=== PATIENT | female | born 1945 | race Caucasian/White ===

== ENCOUNTER 2017-02-13 00:56 | Observation (INO) | payer OTHER, MEDICARE ==
[~2017-02-13] VITALS: Ht 162.6 cm; Wt 102.5 kg
[2017-02-13] MEDS ORDERED: NITROGLYCERIN OINT 2% 1GM PACKET EXT ONE (01:15)
[2017-02-13 01:35] LABS: BASO % 0.1 %; BASO ABS # 0.01 K/uL (0-0.2); COMPLETE YES; EOS % 0.2 %; HEMATOCRIT 39.6 % (37-47); IG% 2.5 %; LYMPH % 9.3 %; LYMPH ABS # 1.23 K/uL (1.2-3.4); MEAN CELL VOLUME 91.2 fL (80-100); MEAN CORPUSCULAR HEMOGLOBIN 31.8 pg (25-34); MEAN CORPUSCULAR HGB CONC 34.8 g/dl (32-36); MEAN PLATELET VOLUME 9.1 fL (7.4-10.4); NEUT % 77.9 %; PLATELET COUNT 289 K/uL (130-400); RED BLOOD COUNT 4.34 M/uL (4.2-5.4); WHITE BLOOD COUNT 13.16 K/uL (4.8-10.8)
[2017-02-13] MEDS ORDERED: RANI300T PO (01:36)
[2017-02-13] MEDS ORDERED: MULT-506 PO (01:36)
[2017-02-13] MEDS ORDERED: OXYB10TA PO (01:36)
[2017-02-13] MEDS ORDERED: NORT75CA2 PO (01:36)
[2017-02-13] MEDS ORDERED: LORA-741 PO (01:36)
[2017-02-13] MEDS ORDERED: VORT1TAB3 PO (01:36)
[2017-02-13] MEDS ORDERED: DEXL60CA4 PO (01:36)
[2017-02-13] MEDS ORDERED: DOCU100C PO (01:36)
[2017-02-13] MEDS ORDERED: LSN20 PO (01:36)
[2017-02-13] MEDS ORDERED: VEGETABLE LAXATIVE PO (01:36)
[2017-02-13] MEDS ORDERED: PREG1CAP28 PO (01:36)
[2017-02-13] MEDS ORDERED: MORP15TA PO (01:36)
[2017-02-13] MEDS ORDERED: CHOL2000 PO (01:36)
--- NOTE | 2017-02-13 01:39 | EMERGENCY ROOM VISIT NOTE ---
History Report prepared by Berry: Adam Smith Under the Supervision of: Dr. Lynda Todd M.D. First contact with patient: 01:05 Stated Complaint: CHEST PAIN - HEART ALERT History of Present Illness The patient is a 71 year old female who presents to the Emergency Room with complaints of sudden chest pain occurring around 2300. She currently rates her discomfort as a 1-2/10 in severity. The patient states that she was asleep, and she woke up with pain that felt like bad indigestion. She states that she took an hillary seltzer, and the pain kept getting worse. She states that she was short of breath at the time, however she feels better now. The patient states that she is not on oxygen at home, though she uses a CPAP. She states that she has never had a heart attack before, and she denies any other medical problems. The patient states that she does not smoke. She states that she has not taken aspirin today, and she was given Nitro en route, and this helped the pain. She states that she felt fine earlier in the day before this pain started. The patient additionally states that she was nauseous, and she had some back pain, though she was not diaphoretic. She has a history of heart disease on both sides of her family. Source of History: patient Onset: 2300 Position: chest Symptom Intensity: 1-2/10 Quality: other (indigestion) Timing: other (sudden) Associated Symptoms: + SOB, + nausea, + back pain, No diaphoresis Review of Systems See HPI for pertinent positives & negatives. A total of 10 systems reviewed and were otherwise negative. Past Medical & Surgical Surgical Problems: (1) History of intestinal surgery Family History Heart disease Social History Marital Status: Housing Status: lives with family Current/Historical Medications Scheduled Cholecalciferol (D3), 1,000 UNITS PO DAILY Dexlansoprazole (Dexilant), 60 MG PO QAM Lisinopril (Lisinopril), 20 MG PO QAM Lorazepam (Ativan), 1 MG PO QPM Multivitamin (Multivitamin), 1 TAB PO DAILY Nortriptyline Hcl (Pamelor), 150 MG PO QPM Oxybutynin Chloride Er (Ditropan Xl), 10 MG PO QPM Pregabalin (Lyrica), 75 MG PO BID Ranitidine Hcl (Zantac), 300 MG PO QPM Vortioxetine HBr (Trintellix), 20 MG PO QAM Scheduled PRN Docusate Sodium (Stool Softener), 100 MG PO DAILY PRN for Constipation Morphine Sulfate Ir (Morphine Sulfate Ir), 15 MG PO DIRECTED PRN for Pain [Vegetable Laxative], 1 DOSE PO DIRECTED PRN for Constipation Allergies Coded Allergies: Iodinated Diagnostic Agents (Verified Allergy, Unknown, UNKNOWN, 02/13/17) Propoxyphene (Verified Allergy, Unknown, UNKNOWN, 02/13/17) Physical Exam Vital Signs Date Time Temp Pulse Resp B/P (MAP) Pulse Ox O2 Delivery O2 Flow Rate FiO2 02/13/17 03:11 78 20 99 02/13/17 03:01 140/92 02/13/17 02:56 73 15 99 02/13/17 02:26 78 14 99 02/13/17 02:11 79 22 99 02/13/17 02:01 167/83 02/13/17 01:58 149/82 02/13/17 01:56 78 17 99 02/13/17 01:41 81 100 02/13/17 01:31 151/93 02/13/17 01:28 81 24 160/91 99 Room Air 2.0 02/13/17 01:26 82 160/91 99 02/13/17 01:12 99 Room Air 02/13/17 01:11 83 99 02/13/17 01:11 82 02/13/17 01:10 151/74 02/13/17 01:07 36.9 81 24 157/74 99 Nasal Cannula 2.0 02/13/17 01:07 193/104 Physical Exam Vital signs reviewed. General: Obese, chronically ill appearing female, in no significant distress. Nasal Cannula oxygen in place. HEENT: No scleral icterus, PERRLA, neck supple. Atraumatic. Cardiovascular: Regular rate and rhythm, no extra sounds. Pulmonary: Clear to auscultation bilaterally, normal work of breathing. Abdomen: Soft, nontender, nondistended, positive bowel sounds. Musculoskeletal: Atraumatic, no peripheral edema. Neurologic: Patient awake alert and oriented x 3, full strength in all 4 extremities. Cranial nerves 2 through 12 grossly intact. Skin: Warm, dry, no rash Medical Decision & Procedures ER Provider Diagnostic Interpretation: X-ray results as stated below per interpretation by me: Chest X-Ray: Bilateral shoulder replacements. Cardiomegaly. Poor visualization of the left costophrenic angle. No significant failure. No infiltrate. Laboratory Results 02/13/17 01:23 Red Blood Count 4.34, Mean Corpuscular Volume 91.2, Mean Corpuscular Hemoglobin 31.8, Mean Corpuscular Hemoglobin Concent 34.8, Mean Platelet Volume 9.1, Neutrophils (%) (Auto) 77.9, Lymphocytes (%) (Auto) 9.3, Monocytes (%) (Auto) 10.0, Eosinophils (%) (Auto) 0.2, Basophils (%) (Auto) 0.1, Neutrophils # (Auto ) 10.25, Lymphocytes # (Auto) 1.23, Monocytes # (Auto) 1.32, Eosinophils # (Auto ) 0.02, Basophils # (Auto) 0.01 02/13/17 00:29 Test 02/13/17 00:29 02/13/17 01:23 02/13/17 02:55 Anion Gap 8.0 mmol/L (3-11) Est Creatinine Clear Calc Drug Dose 54.2 ml/min Estimated GFR () 53.4 Estimated GFR (Non- 46.1 BUN/Creatinine Ratio 27.2 (10-20) Calcium Level 8.9 mg/dl (8.5-10.1) Magnesium Level 2.1 mg/dl (1.8-2.4) Total Bilirubin 0.5 mg/dl (0.2-1) Direct Bilirubin 0.2 mg/dl (0-0.2) Aspartate Amino Transf (AST/SGOT) 166 U/L (15-37) Alanine Aminotransferase (ALT/SGPT) 99 U/L (12-78) Alkaline Phosphatase 59 U/L (45-117) Total Creatine Kinase 39 U/L (26-192) Creatine Kinase MB 0.7 ng/ml (0.5-3.6) Creatine Kinase MB Ratio 1.8 (0-3.0) Total Protein 7.3 gm/dl (6.4-8.2) Albumin 3.7 gm/dl (3.4-5.0) White Blood Count 13.16 K/uL (4.8-10.8) Red Blood Count 4.34 M/uL (4.2-5.4) Hemoglobin 13.8 g/dL (12.0-16.0) Hematocrit 39.6 % (37-47) Mean Corpuscular Volume 91.2 fL (80-100) Mean Corpuscular Hemoglobin 31.8 pg (25-34) Mean Corpuscular Hemoglobin Concent 34.8 g/dl (32-36) Platelet Count 289 K/uL (130-400) Mean Platelet Volume 9.1 fL (7.4-10.4) Neutrophils (%) (Auto) 77.9 % Lymphocytes (%) (Auto) 9.3 % Monocytes (%) (Auto) 10.0 % Eosinophils (%) (Auto) 0.2 % Basophils (%) (Auto) 0.1 % Neutrophils # (Auto) 10.25 K/uL (1.4-6.5) Lymphocytes # (Auto) 1.23 K/uL (1.2-3.4) Monocytes # (Auto) 1.32 K/uL (0.11-0.59) Eosinophils # (Auto) 0.02 K/uL (0-0.5) Basophils # (Auto) 0.01 K/uL (0-0.2) RDW Standard Deviation 46.0 fL (36.4-46.3) RDW Coefficient of Variation 13.7 % (11.5-14.5) Immature Granulocyte % (Auto) 2.5 % Immature Granulocyte # (Auto) 0.33 K/uL (0.00-0.02) Bedside Troponin I < 0.030 ng/ml (0-0.045) Urine Color YELLOW Urine Appearance CLEAR (CLEAR) Urine pH 5.0 (4.5-7.5) Urine Specific [place] 1.026 (1.000-1.030) Urine Protein NEG (NEG) Urine Glucose (UA) NEG (NEG) Urine Ketones NEG (NEG) Urine Occult Blood NEG (NEG) Urine Nitrite NEG (NEG) Urine Bilirubin NEG (NEG) Urine Urobilinogen NEG (NEG) Urine Leukocyte Esterase NEG (NEG) Laboratory results per my review. Medications Administered Medications (Trade) Dose Ordered Sig/Lana Route Start Time Stop Time Status Last Admin Dose Admin Nitroglycerin (Nitroglycerin 2% Oint) 1 inch NOW ONCE EXT 02/13/17 01:15 02/13/17 01:16 DC 02/13/17 01:33 1 INCH ECG Indication: chest pain Rate (beats per minute): 80 Rhythm: normal sinus Findings: RBBB, no acute ischemic change, other (Likely previous inferior infarct, T wave anbormalities in the anterior leads) Comparison ECG Date: 07/02/2000 Change: Right bundle branch block is new ED Course 0105: Past medical records reviewed. The patient was evaluated in room A1. A complete history and physical examination was performed. 0115: Nitroglycerine 2% Oint 1 inch EXT 0228: I reevaluated the patient, and she states that she does not have a gall bladder. 0245: I reviewed the patient's case with Dr. Gagnon. He will evaluate the patient for further management. Medical Decision Differential Diagnosis: Acute coronary syndrome, pulmonary embolus, aortic dissection, musculoskeletal pain, pneumonia, pleural effusion, pneumothorax This patient was evaluated and appeared to be in no significant distress. IV access was obtained and lab work was drawn. Pt was placed on the residential monitor. She was given aspirin prior to arrival. EKG reveals a right bundle branch block with repolarization abnormality. Old EKG is from the year 1999 with no right bundle-branch block present. Patient was given 1 inch of Nitropaste she was complaining of 1/10 pain. Chest x-ray is largely clear. Cardiac enzymes are normal. Patient will be evaluated by the hospitalist service for admission and further management. Medication Reconcilliation Current Medication List: was personally reviewed by me Blood Pressure Screening Patient's blood pressure: Elevated blood pressure Blood pressure disposition: Elevated BP felt to be situational Referred to the hospitalist. Consults Time Called: [phone] Consulting Physician: Dr. Gagnon Returned Call: [phone] I reviewed the patient's case with Dr. Gagnon. He will evaluate the patient for further management. Impression Primary Impression: Substernal chest pain Scribe Attestation The scribe's documentation has been prepared under my direction and personally reviewed by me in its entirety. I confirm that the note above accurately reflects all work, treatment, procedures, and medical decision making performed by me. Departure Information Dispostion Being Evaluated By Hospitalist Referrals Merlene Russell M.D. (PCP)
[2017-02-13] MEDS ORDERED: CHOL1CAP27 PO (01:42)
[2017-02-13 02:08] LABS: BUN/CREATININE RATIO 27.2 (10-20); CALCIUM 8.9 mg/dl (8.5-10.1); CREATININE 1.2 mg/dl (0.60-1.20)
[2017-02-13 02:10] LABS: POTASSIUM 4.1 mmol/L (3.5-5.1)
[2017-02-13 02:18] LABS: CKMB/CK RATIO 1.8 (0-3.0); MAGNESIUM 2.1 mg/dl (1.8-2.4)
[2017-02-13 03:05] LABS: URINE APPEARANCE CLEAR (CLEAR); URINE BILIRUBIN NEG (NEG); URINE COLOR YELLOW; URINE NITRITE NEG (NEG); URINE SPECIFIC GRAVITY 1.026 (1.000-1.030); UROBILINOGEN NEG (NEG); ZZUR CULT IF INDIC CLEAN CATCH NO
[2017-02-13 03:13] LABS: MANUAL MICROSCOPIC REQUIRED? NO; REVIEW REQ? NO
[2017-02-13] MEDS ORDERED: ONDANSETRON INJ 2 MG/ML 2 ML VIAL IV PRN (03:30)
[2017-02-13] MEDS ORDERED: NITROGLYCERIN 0.4 MG SL PER TAB CHARGE SL PRN (03:30)
[2017-02-13] MEDS ORDERED: DOCUSATE SODIUM 100 MG CAP PO PRN (03:30)
[2017-02-13] MEDS ORDERED: MoRPHine SULFATE IR 15 MG TAB (IMMEDIATE RELEASE) PO PRN (03:30)
[2017-02-13] MEDS ORDERED: PSYLLIUM 58.6% PWD PACK S\\F PO PRN (03:30)
[2017-02-13] MEDS ORDERED: ACETAMINOPHEN 325 MG TAB PO PRN (03:30)
[2017-02-13 04:00] VITALS: BP 149/69; PULSE 102; TEMP 36.5; O2SAT 98; Ht 162.6 cm; Wt 102.5 kg
[2017-02-13] MEDS ORDERED: NSS + 20MEQ KCL 1000ML 1,000 ML IV SCH (04:30)
[2017-02-13] MEDS ORDERED: IV FLUIDS COMPLETED PRN (04:45)
--- NOTE | 2017-02-13 06:00 | HISTORY & PHYSICAL EXAMINATION ---
DATE OF ADMISSION: 02/13/2017 PRIMARY CARE PHYSICIANS: Dr. Wilson and also as noted in the chart Dr. Seymour CHIEF COMPLAINT: Substernal chest pain since around 10 p.m. last night. HISTORY OF PRESENT ILLNESS: She is an obese, 71-year-old female, with a significant past medical history including myalgia myositis, esophageal reflux, depressed mood, hypertension and abnormality of gait. Apparently, she went to bed around 10 p.m. and woke up with substernal chest pain following that. Initially, she took an Zora-Burns to relieve the pain, but no improvement. Then she took 2 Tums without any improvement. The pain got worse, associated with shortness of breath and some nausea. At that point, her sister called 911 and she was brought to the Emergency Room. She got nitroglycerin x2 and with that the pain was relieved to some extent. In the Emergency Room, she was hemodynamically stable. Her blood pressure went down a little bit following the nitroglycerin, but that came out normal. Subsequently, her blood count tests came out unremarkable including troponin, but her EKG did show probable right bundle branch block with associated ST-T wave changes, but nothing acute. Given the severity of the chest pain she was admitted to telemetry unit for continuation of care. PAST MEDICAL HISTORY: Significant for myalgia, myositis, esophageal reflux, anxiety/depression, hypertension, chronic pain, abnormality of gait and obesity. PAST SURGICAL HISTORY: Significant for multiple surgeries in the abdomen, in the intestine and also herniorrhaphy. She had right and left shoulder replacements in the past, gallbladder surgery, tonsillectomy as a child, hiatal hernia and also total hysterectomy. Also she has had intraoperative repair for urinary bladder. ALLERGIES: SHE IS ALLERGIC TO IODINATED CONTRAST DYE AND ALSO PROPOXYPHENE. MEDICATIONS: As an outpatient she has been on D3 1000 units daily, Dexilant 60 mg in the morning, docusate sodium 100 mg b.i.d., lisinopril 20 mg daily, lorazepam 0.5 mg at night, morphine sulfate IR 15 mg as directed for pain, multivitamin tablet 1 tablet daily, Pamelor 75 mg tablet 2 tablets at night, oxybutynin ER 10 mg daily, Lyrica 75 mg p.o. b.i.d., Zantac 300 mg at night, Trintellix 20 mg in the morning and laxatives as directed. REVIEW OF SYSTEMS: Nothing unremarkable. FAMILY HISTORY: Maternal grandmother and mother had heart disorder. Father had asthma. SOCIAL HISTORY: She is a . She has 4 children. She is a nonsmoker now, used to smoke before. She does not drink any alcohol and she lives with her boyfriend. PHYSICAL EXAMINATION: GENERAL: On examination in the Emergency Room, she was not having any acute distress. VITAL SIGNS: Temperature 36.9, pulse was 81, blood pressure 160/91 and saturation 99% on 2 liters. HEENT: Unremarkable. NECK: Supple. No JVD, no bruit. CHEST: Decreased breath sounds without any wheezing and/or crackles. HEART: S1, S2 regular. ABDOMEN: Soft, benign, mildly tender all over, scars from previous surgery. Bowel sounds present.No organomegaly. EXTREMITIES: Trace edema bilaterally. MUSCULOSKELETAL: Did not show any acute arthritis. CENTRAL NERVOUS SYSTEM: She was alert, awake and oriented x3. LABORATORY DATA: Noted today; white count was 13.16, H&H 13.8/39.6 and platelet was 289. Sodium 137, potassium 4.1, chloride 103, carbon dioxide 26, BUN 33, creatinine 1.20 and random glucose 156. AST slightly high at 166, ALT 99, alkaline phosphatase normal. Troponin was less than 0.030. UA examination; unremarkable. Chest x-ray; no acute findings. EKG; SR,a rate of 84 per minute, normal axis and RBBB with associated ST-T wave changes. She has history of prior right bundle branch block. IMPRESSION AND PLAN: 1. Chest pain, to rule out myocardial infarction. She will be admitted to telemetry unit for observation. Serial cardiac enzymes; if she rules out, most likely she will need dobutamine stress echocardiogram for further evaluation before she is discharged. 2. Hypertension; blood pressure on upper side of normal, continue current medications. 3. Chronic pain, continue with her pain regimen. 4. Anxiety/depression, continue with current medications. 5. Gastroesophageal reflux, continue with ranitidine. 6. Deep venous thrombosis prophylaxis with subcutaneous heparin. 7. Code status, discussed with the patient, she will be a full code. In my clinical judgment, the beneficiary meets criteria as per CMS for 2 midnights' stay in the hospital. MEI
--- NOTE | 2017-02-13 06:51 | DIAGNOSTIC IMAGING REPORT ---
CHEST ONE VIEW PORTABLE CLINICAL HISTORY: Atypical chest pain COMPARISON STUDY: No previous studies for comparison. FINDINGS: The heart is mildly enlarged. There is no failure. There is no focal pulmonary consolidation. There are no pleural effusions. There is a linear band of scar/atelectatic changes left lung base. There are surgical clips the esophagogastric junction. There are postsurgical changes of bilateral shoulder arthroplasties.[ IMPRESSION: No active disease in the chest. Electronically signed by: Mac Vences M.D. 02/13/2017 6:49 AM Dictated Date/Time: 02/13/2017 6:49 AM
[2017-02-13 06:58] LABS: MEAN CELL VOLUME 91.1 fL (80-100); MEAN CORPUSCULAR HEMOGLOBIN 30.8 pg (25-34); MEAN CORPUSCULAR HGB CONC 33.8 g/dl (32-36); MEAN PLATELET VOLUME 8.9 fL (7.4-10.4); PLATELET COUNT 263 K/uL (130-400); RED BLOOD COUNT 4.28 M/uL (4.2-5.4); WHITE BLOOD COUNT 13.13 K/uL (4.8-10.8)
[2017-02-13 07:05] LABS: PROTHROMBIN TIME (PATIENT) 10.3 SECONDS (9.0-12.0)
[2017-02-13 07:29] LABS: BUN/CREATININE RATIO 31.9 (10-20); CALCIUM 8.5 mg/dl (8.5-10.1); CREATININE 0.87 mg/dl (0.60-1.20); POTASSIUM 4.3 mmol/L (3.5-5.1)
[2017-02-13 07:38] VITALS: BP 130/79; PULSE 69; TEMP 36.7; O2SAT 100
[2017-02-13 07:38] LABS: CHOLESTEROL/HDL RATIO 3.5; THYROID STIMULATING HORMONE 0.466 uIu/ml (0.300-4.500)
[2017-02-13] MEDS ORDERED: PREGABALIN 75 MG CAP PO SCH (09:00)
[2017-02-13] MEDS ORDERED: MULTIVITAMIN TAB PO SCH (09:00)
[2017-02-13] MEDS ORDERED: LISINOPRIL 20 MG TAB PO SCH (09:00)
[2017-02-13] MEDS ORDERED: CHOLECALCIFEROL 1000 INTER.UNIT TAB PO SCH (09:00)
[2017-02-13] MEDS ORDERED: PANTOprazole SOD 40 MG TAB PO SCH (09:00)
[2017-02-13] MEDS: HEPARIN SOD 5000 UNIT/0.5 ML CARP SQ SCH ×2 (09:20→14:00)
--- NOTE | 2017-02-13 09:38 | Progress Note ---
Internal Med Progress Note Date of Service: Feb 13, 2017. Provider Documentation: SUBJECTIVE: denies of any chest pain or SOB mentions that had chest heaviness around 11 pm -thought indigestion symptom was relieved with SL my EMT had uneventful night , no symptom since admission no prior hx of CAD scheduled to have Dobutamine stress test today OBJECTIVE: Vital Signs-as noted below Exam: General-no sign of discomfort Eyes-sclera non icteric ENT-NAD Neck-no JVD , Lungs-CTA ,no rales or wheeze Heart-regular S1/s2, no JVD , no lower ext edema Abdomen-soft, non tender Extremities-no rash or deformity Neuro-AAO x3, no focal deficit Lab data as noted below. ASSESSMENT & PLAN: 1. Chest pain atypical for MS symptom more suggestive of GERD at present no discomfort , no hypoxia EKG shows RBBB , initial cardiac markers is negative 2. Chronic low back pain /deconditioning : Mentions of limited activity due to back pain no recent fall hx FIBROMYALGIA: cont out pt meds of Lyrica /Pamelor 2. Hypertension cont out pt meds 4. Anxiety/depression cont out pt meds 5. Gastroesophageal reflux, on ranitidine/ PPI -Dexlansoprazole 6. Deep venous thrombosis prophylaxis with subcutaneous heparin. FULL CODE DISPOSITION possible discharge home if Dobutamine stress test is negative Vital Signs: Date Time Temp Pulse Resp B/P (MAP) Pulse Ox O2 Delivery O2 Flow Rate FiO2 02/13/17 07:38 36.7 69 18 130/79 (96) 100 Nasal Cannula 2.0 02/13/17 04:00 36.5 102 18 149/69 (95) 98 Nasal Cannula 2.0 02/13/17 04:00 36.5 102 18 149/69 98 Nasal Cannula 2.0 02/13/17 04:00 98 Nasal Cannula 2.0 02/13/17 03:11 78 20 99 02/13/17 03:01 140/92 02/13/17 02:56 73 15 99 02/13/17 02:26 78 14 99 02/13/17 02:11 79 22 99 02/13/17 02:01 167/83 02/13/17 01:58 149/82 02/13/17 01:56 78 17 99 02/13/17 01:41 81 100 02/13/17 01:31 151/93 02/13/17 01:28 81 24 160/91 99 Room Air 2.0 02/13/17 01:26 82 160/91 99 02/13/17 01:12 99 Room Air 02/13/17 01:11 83 99 02/13/17 01:11 82 02/13/17 01:10 151/74 02/13/17 01:07 36.9 81 24 157/74 99 Nasal Cannula 2.0 02/13/17 01:07 193/104 Lab Results: Results Past 24 Hours Test 02/13/17 00:29 02/13/17 01:23 02/13/17 02:55 02/13/17 06:44 Range/Units Sodium Level 137 138 136-145 mmol/L Potassium Level 4.1 4.3 3.5-5.1 mmol/L Chloride Level 103 106 98-107 mmol/L Carbon Dioxide Level 26 26 21-32 mmol/L Anion Gap 8.0 6.0 3-11 mmol/L Blood Urea Nitrogen 33 28 7-18 mg/dl Creatinine 1.20 0.87 0.60-1.20 mg/dl Est Creatinine Clear Calc Drug Dose 54.2 71.1 ml/min Estimated GFR () 53.4 78.8 Estimated GFR (Non- 46.1 68.0 BUN/Creatinine Ratio 27.2 31.9 10-20 Random Glucose 156 150 70-99 mg/dl Calcium Level 8.9 8.5 8.5-10.1 mg/dl Magnesium Level 2.1 1.8-2.4 mg/dl Total Bilirubin 0.5 0.2-1 mg/dl Direct Bilirubin 0.2 0-0.2 mg/dl Aspartate Amino Transf (AST/SGOT) 166 15-37 U/L Alanine Aminotransferase (ALT/SGPT) 99 12-78 U/L Alkaline Phosphatase 59 45-117 U/L Total Creatine Kinase 39 26-192 U/L Creatine Kinase MB 0.7 0.5-3.6 ng/ml Creatine Kinase MB Ratio 1.8 0-3.0 Total Protein 7.3 6.4-8.2 gm/dl Albumin 3.7 3.4-5.0 gm/dl White Blood Count 13.16 13.13 4.8-10.8 K/uL Red Blood Count 4.34 4.28 4.2-5.4 M/uL Hemoglobin 13.8 13.2 12.0-16.0 g/dL Hematocrit 39.6 39.0 37-47 % Mean Corpuscular Volume 91.2 91.1 80-100 fL Mean Corpuscular Hemoglobin 31.8 30.8 25-34 pg Mean Corpuscular Hemoglobin Concent 34.8 33.8 32-36 g/dl Platelet Count 289 263 130-400 K/uL Mean Platelet Volume 9.1 8.9 7.4-10.4 fL Neutrophils (%) (Auto) 77.9 % Lymphocytes (%) (Auto) 9.3 % Monocytes (%) (Auto) 10.0 % Eosinophils (%) (Auto) 0.2 % Basophils (%) (Auto) 0.1 % Neutrophils # (Auto) 10.25 1.4-6.5 K/uL Lymphocytes # (Auto) 1.23 1.2-3.4 K/uL Monocytes # (Auto) 1.32 0.11-0.59 K/uL Eosinophils # (Auto) 0.02 0-0.5 K/uL Basophils # (Auto) 0.01 0-0.2 K/uL RDW Standard Deviation 46.0 46.2 36.4-46.3 fL RDW Coefficient of Variation 13.7 13.8 11.5-14.5 % Immature Granulocyte % (Auto) 2.5 % Immature Granulocyte # (Auto) 0.33 0.00-0.02 K/uL Bedside Troponin I < 0.030 0-0.045 ng/ml Urine Color YELLOW Urine Appearance CLEAR CLEAR Urine pH 5.0 4.5-7.5 Urine Specific [place] 1.026 1.000-1.030 Urine Protein NEG NEG Urine Glucose (UA) NEG NEG Urine Ketones NEG NEG Urine Occult Blood NEG NEG Urine Nitrite NEG NEG Urine Bilirubin NEG NEG Urine Urobilinogen NEG NEG Urine Leukocyte Esterase NEG NEG Prothrombin Time 10.3 9.0-12.0 SECONDS Prothromb Time International Ratio 1.0 0.9-1.1 Triglycerides Level 106 0-150 mg/dl Cholesterol Level 203 0-200 mg/dl HDL Cholesterol 58 mg/dl LDL Cholesterol, Calculated 124 mg/dl VLDL Cholesterol, Calculated 21 mg/dl Cholesterol/HDL Ratio 3.5 Thyroid Stimulating Hormone (TSH) 0.466 0.300-4.500 uIu/ml Test 02/13/17 09:07 Range/Units Creatine Kinase MB Ratio 0-3.0
[2017-02-13 09:53] LABS: CKMB/CK RATIO 2.2 (0-3.0)
[2017-02-13] MEDS ORDERED: METOPROLOL TARTRATE 1 MG/ML VIAL ONE (10:21)
[2017-02-13] MEDS ORDERED: ATROPINE SULFATE 0.1 MG/ML 5ML SYR ONE (10:21)
[2017-02-13] MEDS ORDERED: DOBUTamine HCL 12.5 MG/ML 20 ML VIAL ONE (10:21)
[2017-02-13 11:43] VITALS: BP 116/73; PULSE 65; TEMP 36.7; O2SAT 97
--- NOTE | 2017-02-13 13:00 | Discharge Instructions ---
Discharge Instructions Date of Service Feb 13, 2017. Admission Reason for Admission: Substernal Chest Pain Discharge Discharge Diagnosis / Problem: CHEST PAIN /ATYPICAL FOR ANGINA /NEGATIVE DOBUTAMINE STRESS TEST Discharge Goals Goal(s): Improve disease control, Diagnostic testing Activity Recommendations Activity Limitations: resume your previous activity . Instructions / Follow-Up Instructions / Follow-Up HOSPITAL FOLLOW UP WITH FAMILY PHYSICIAN IN A WEEK Current Hospital Diet Patient's current hospital diet: AHA Diet (Heart Healthy) Discharge Diet Recommended Diet: AHA Diet (Heart Healthy) Pending Studies Studies pending at discharge: no Laboratory Results Lipid Panel Test 02/13/17 06:44 Range/Units Triglycerides Level 106 0-150 mg/dl Cholesterol Level 203 H 0-200 mg/dl HDL Cholesterol 58 mg/dl Cholesterol/HDL Ratio 3.5 LDL Cholesterol, Calculated 124 mg/dl Medical Emergencies . Who to Call and When: Medical Emergencies: If at any time you feel your situation is an emergency, please call 911 immediately. . Non-Emergent Contact Non-Emergency issues call your: Primary Care Provider . . "Provider Documentation" section prepared by Claritza Aguila. . VTE Core Measure Inpt VTE Proph given/why not?: Unfractionated heparin SQ
[2017-02-13 14:16] VITALS: BP 116/73; PULSE 65; TEMP 36.7; O2SAT 97
--- NOTE | 2017-02-13 14:41 | DOBUTAMINE ECHO ---
*NOTICE TO RECEIVING [employer] This information is strictly Confidential and protected under [place] law. [place] law prohibits you from making any further disclosure of this information unless further disclosure is expressly permitted by the written consent of the person to whom it pertains or is authorized by law. A general authorization for the release of medical or other information is not sufficient for this purpose. Hospital accepts no responsibility if the information is made available to any other person, INCLUDING THE PATIENT. Interpretation Summary * Name: VERONICA RIVERA Study Date: 02/13/2017 10:32 AM BP: 131/79 mmHg * Patient Location: C.2T\S\S239\S\1 HR: 65 * : 1945 (M/d/yyyy) Gender: Female Height: 63 in * Age: 71 yrs Ethnicity: [place] Weight: 250 lb * Ordering Physician: Indigo Gagnon * Referring Physician: Self, Referred * Performed By: Kevin Saha RCS * * Reason For Study: Chest pain * BSA: 2.1 m2 * STRESS STUDY: Normal pharmacologic stress echocardiogram. No echocardiographic or ECG evidence of myocardial ischemia having achieved heart rate adequate for diagnostic purposes. * -- Conclusions -- * STRESS STUDY: Normal pharmacologic stress echocardiogram. No echocardiographic or ECG evidence of myocardial ischemia having achieved heart rate adequate for diagnostic purposes. Procedure Details * A contrast injection of Definity was performed to improve assessment of LV function. * Contrast was injected into an intravenous site in the left arm. * One vial of Definity ultrasound contrast was diluted in normal saline to a total volume of 10 ml. A total of '10' ml of solution was administered during imaging. * Lot # [id number] of Definity utilized for procedure. * Expiration date 1AUG18. * The attending nurse who injected the contrast agent was UNIQUE Alexandra. Left Ventricle * The left ventricle is normal in size. * There is mild concentric left ventricular hypertrophy. * Left ventricular systolic function is normal. * Resting wall motion: Normal. Stress wall motion: Appropriate increase in Left ventricular systolic function and decrease in cavity size. No stress induced segmental wall motion abnormalities. Right Ventricle * The right ventricle is normal size. Atria * The left atrial size is normal. * Right atrial size is normal. * There is no evidence of atrial septal defect, but resolution does not allow assessment for a patent foramen ovale. Mitral Valve * The mitral valve anatomy is normal. * Significant mitral regurgitation is absent. Tricuspid Valve * The tricuspid valve anatomy is normal. * Significant tricuspid regurgitation is absent. Aortic Valve * The aortic valve is normal in structure and function. Great Vessels * The aortic root and proximal ascending aorta are normal sized. Pericardium * Small pericardial effusion. Stress Parameters * The baseline electrocardiogram was abnormal. It displayed right bundle branch block. * Stress ECG: No ST changes. No arrhythmias. * The stress portion of this study was personally supervised by the undersigned interpreting physician. * Rest heart rate was '65' BPM. * Rest blood pressure was '131/79' * Maximum heart rate achieved was 137 bpm. * Maximum heart rate was 90 % of maximum age-predicted heart rate. * Maximum blood pressure was '171/79' * Maximum Dobutamine infusion rate was '40' mcg/kg/min. * A total of 0 mg of intravenous Atropine was used to supplement Dobutamine for heart rate response. * Dobutamine infusion was terminated due to achieving target heart rate * A total of 5 mg of IV Metoprolol was administered to reverse Dobutamine-induced tachycardia. * The patient did not exhibit any symptoms during drug infusion. Right Ventricle * The right ventricular wall motion is normal. MMode 2D Measurements and Calculations Ao root diam 2.9 cm Ao root area 6.8 cm\S\2 LVOT diam 2.0 cm LVOT area 3.3 cm\S\2 LVAd ap4 20.1 cm\S\2 LVLd ap4 7.7 cm EDV(MOD-sp4) 44.0 ml EDV(sp4-el) 44.7 ml LVAs ap4 11.5 cm\S\2 LVLs ap4 6.1 cm ESV(MOD-sp4) 19.5 ml ESV(sp4-el) 18.3 ml EF(MOD-sp4) 55.6 % EF(sp4-el) 59.2 % LVAd ap2 18.5 cm\S\2 LVLd ap2 7.4 cm EDV(MOD-sp2) 39.1 ml EDV(sp2-el) 39.6 ml LVAs ap2 9.8 cm\S\2 LVLs ap2 6.0 cm ESV(MOD-sp2) 13.4 ml ESV(sp2-el) 13.5 ml EF(MOD-sp2) 65.8 % EF(sp2-el) 65.9 % LVLd %diff -3.93 % EDV(MOD-bp) 42.4 ml LVLs %diff -1.94 % ESV(MOD-bp) 16.2 ml EF(MOD-bp) 61.8 % SV(MOD-sp4) 24.5 ml SI(MOD-sp4) 11.5 ml/m\S\2 SV(MOD-sp2) 25.7 ml SI(MOD-sp2) 12.1 ml/m\S\2 SV(MOD-bp) 26.2 ml SI(MOD-bp) 12.3 ml/m\S\2 SV(sp4-el) 26.4 ml SI(sp4-el) 12.4 ml/m\S\2 SV(sp2-el) 26.1 ml SI(sp2-el) 12.3 ml/m\S\2 Doppler Measurements and Calculations MV E max cat 64.8 cm/sec MV A max cat 121.1 cm/sec MV E/A 0.53 MV dec time 0.27 sec Ao V2 max 100.6 cm/sec Ao max PG 4.0 mmHg Ao max PG (full) 0.48 mmHg TERRY(V,A) 3.1 cm\S\2 TERRY(V,D) 3.1 cm\S\2 LV V1 max PG 3.6 mmHg LV V1 max 94.4 cm/sec
[2017-02-13] MEDS ORDERED: LORAZEPAM 0.5 MG TAB PO SCH (21:00)
[2017-02-13] MEDS ORDERED: RANITIDINE HCL 150 MG TAB PO SCH (21:00)
[2017-02-13] MEDS ORDERED: OXYBUTYNIN CHLORIDE 5 MG TABCR PO SCH (21:00)
[2017-02-13] MEDS ORDERED: NORTRIPTYLINE HCL 25 MG CAP PO SCH (21:00)
--- NOTE | 2017-03-05 09:31 | Discharge Summary ---
Discharge Summary Date of Service Mar 05, 2017. Discharge Summary Admission Date: Feb 13, 2017 at 03:21 Discharge Date: Feb 13, 2017 Discharge Disposition: Home Principal Diagnosis: CHEST PAIN /ATYPICAL FOR ANGINA /NEGATIVE DOBUTAMINE STRESS TEST Procedures: DOBUTAMINE STRESS TEST -NEGATIVE FOR STRESS INDUCED ISCHEMIA STRESS STUDY: Normal pharmacologic stress echocardiogram. No echocardiographic or ECG evidence of myocardial ischemia having achieved heart rate adequate for diagnostic purposes. Medication Reconciliation Continued Medications: Cholecalciferol (D3) 1,000 Unit Cap 1000 UNITS PO DAILY Dexlansoprazole (Dexilant) 60 Mg Cap 60 MG PO QAM Docusate Sodium (Stool Softener) 100 Mg Cap 100 MG PO DAILY PRN for Constipation Lisinopril (Lisinopril) 20 Mg Tab 20 MG PO QAM Lorazepam (Ativan) 0.5 Mg Tab 1 MG PO QPM, TAB Morphine Sulfate Ir (Morphine Sulfate Ir) 15 Mg Tab 15 MG PO DIRECTED PRN for Pain Multivitamin (Multivitamin) Tab 1 TAB PO DAILY, TAB Nortriptyline Hcl (Pamelor) 75 Mg Cap 150 MG PO QPM, CAP Oxybutynin Chloride Er (Ditropan Xl) 10 Mg Tab 10 MG PO QPM, TAB Pregabalin (Lyrica) 75 Mg Cap 75 MG PO BID, CAP Ranitidine Hcl (Zantac) 300 Mg Tab 300 MG PO QPM, TAB Vortioxetine HBr (Trintellix) 20 Mg Tab 20 MG PO QAM [Vegetable Laxative] () 1 DOSE PO DIRECTED PRN for Constipation Admission Information HPI (per Admitting provider): DATE OF ADMISSION: 02/13/2017 PRIMARY CARE PHYSICIANS: Dr. Wilson and also as noted in the chart Dr. Seymour CHIEF COMPLAINT: Substernal chest pain since around 10 p.m. last night. HISTORY OF PRESENT ILLNESS: She is an obese, 71-year-old female, with a significant past medical history including myalgia myositis, esophageal reflux, depressed mood, hypertension and abnormality of gait. Apparently, she went to bed around 10 p.m. and woke up with substernal chest pain following that. Initially, she took an [place] to relieve the pain, but no improvement. Then she took 2 Tums without any improvement. The pain got worse, associated with shortness of breath and some nausea. At that point, her sister called 911 and she was brought to the Emergency Room. She got nitroglycerin x2 and with that the pain was relieved to some extent. In the Emergency Room, she was hemodynamically stable. Her blood pressure went down a little bit following the nitroglycerin, but that came out normal. Subsequently, her blood count tests came out unremarkable including troponin, but her EKG did show probable right bundle branch block with associated ST-T wave changes, but nothing acute. Given the severity of the chest pain she was admitted to telemetry unit for continuation of care. PAST MEDICAL HISTORY: Significant for myalgia, myositis, esophageal reflux, anxiety/depression, hypertension, chronic pain, abnormality of gait and obesity. PAST SURGICAL HISTORY: Significant for multiple surgeries in the abdomen, in the intestine and also herniorrhaphy. She had right and left shoulder replacements in the past, gallbladder surgery, tonsillectomy as a child, hiatal hernia and also total hysterectomy. Also she has had intraoperative repair for urinary bladder. ALLERGIES: SHE IS ALLERGIC TO IODINATED CONTRAST DYE AND ALSO PROPOXYPHENE. MEDICATIONS: As an outpatient she has been on D3 1000 units daily, Dexilant 60 mg in the morning, docusate sodium 100 mg b.i.d., lisinopril 20 mg daily, lorazepam 0.5 mg at night, morphine sulfate IR 15 mg as directed for pain, multivitamin tablet 1 tablet daily, Pamelor 75 mg tablet 2 tablets at night, oxybutynin ER 10 mg daily, Lyrica 75 mg p.o. b.i.d., Zantac 300 mg at night, Trintellix 20 mg in the morning and laxatives as directed. REVIEW OF SYSTEMS: Nothing unremarkable. FAMILY HISTORY: Maternal grandmother and mother had heart disorder. Father had asthma. SOCIAL HISTORY: She is a . She has 4 children. She is a nonsmoker now, used to smoke before. She does not drink any alcohol and she lives with her boyfriend. Physical Exam (per Admitting): PHYSICAL EXAMINATION: GENERAL: On examination in the Emergency Room, she was not having any acute distress. VITAL SIGNS: Temperature 36.9, pulse was 81, blood pressure 160/91 and saturation 99% on 2 liters. HEENT: Unremarkable. NECK: Supple. No JVD, no bruit. CHEST: Decreased breath sounds without any wheezing and/or crackles. HEART: S1, S2 regular. ABDOMEN: Soft, benign, mildly tender all over, scars from previous surgery. Bowel sounds present.No organomegaly. EXTREMITIES: Trace edema bilaterally. MUSCULOSKELETAL: Did not show any acute arthritis. CENTRAL NERVOUS SYSTEM: She was alert, awake and oriented x3. Hospital Course 1. Chest pain atypical for IA symptom more suggestive of GERD at present no discomfort , no hypoxia EKG shows RBBB , initial cardiac markers is negative s/p Dobutamine stress test today -negative for stress induced angina /no evidence of ischemia 2. Chronic low back pain /deconditioning : Mentions of limited activity due to back pain no recent fall hx FIBROMYALGIA: cont out pt meds of Lyrica /Pamelor 2. Hypertension cont out pt meds 4. Anxiety/depression cont out pt meds 5. Gastroesophageal reflux, on ranitidine/ PPI -Dexlansoprazole 6. Deep venous thrombosis prophylaxis with subcutaneous heparin. FULL CODE DISPOSITION discharge home today Total time spent on discharge = This includes examination of the patient, discharge planning, medication reconciliation, and communication with other providers. Discharge Instructions Discharge Instructions Date of Service Feb 13, 2017. Admission Reason for Admission: Substernal Chest Pain Discharge Discharge Diagnosis / Problem: CHEST PAIN /ATYPICAL FOR ANGINA /NEGATIVE DOBUTAMINE STRESS TEST Discharge Goals Goal(s): Improve disease control, Diagnostic testing Activity Recommendations Activity Limitations: resume your previous activity . Instructions / Follow-Up Instructions / Follow-Up HOSPITAL FOLLOW UP WITH FAMILY PHYSICIAN IN A WEEK Current Hospital Diet Patient's current hospital diet: AHA Diet (Heart Healthy) Discharge Diet Recommended Diet: AHA Diet (Heart Healthy) Pending Studies Studies pending at discharge: no Laboratory Results Lipid Panel Test 02/13/17 06:44 Range/Units Triglycerides Level 106 0-150 mg/dl Cholesterol Level 203 H 0-200 mg/dl HDL Cholesterol 58 mg/dl Cholesterol/HDL Ratio 3.5 LDL Cholesterol, Calculated 124 mg/dl Medical Emergencies . Who to Call and When: Medical Emergencies: If at any time you feel your situation is an emergency, please call 911 immediately. . Non-Emergent Contact Non-Emergency issues call your: Primary Care Provider . . "Provider Documentation" section prepared by Claritza Aguila. . VTE Core Measure Inpt VTE Proph given/why not?: Unfractionated heparin SQ
== END 2017-02-13 16:38 | disposition home or self-care (01) ==
LOC: C.ED 00:56 → C.2T 03:21 → ENRESERV 03:35
PROVIDERS: ADMIT Internal Medicine; ATTEND Hospitalist
DX: R07.2 Precordial pain (principal); Z82.49 Family history of ischemic heart disease and other diseases of the circulatory system; E66.9 Obesity, unspecified; Z96.611 Presence of right artificial shoulder joint; Z96.612 Presence of left artificial shoulder joint; I51.7 Cardiomegaly; I10 Essential (primary) hypertension; K21.9 Gastro-esophageal reflux disease without esophagitis; F32.9 Major depressive disorder, single episode, unspecified; Z82.5 Family history of asthma and other chronic lower respiratory diseases; Z87.891 Personal history of nicotine dependence; G89.29 Other chronic pain; M54.5 Low back pain